=== PATIENT | female | born 1990 | race Caucasian/White ===

== ENCOUNTER 2019-06-11 19:07 | Emergency (ER) | payer MEDICAID ==
[~2019-06-11] VITALS: Ht 172.7 cm; Wt 127.0 kg
[2019-06-11 19:08] VITALS: BP 185/117
[2019-06-11] MEDS ORDERED: PENI500T2 PO (19:24)
== END 2019-06-11 19:42 | disposition home or self-care (01) ==
LOC: ER 19:08
DX: K02.9 Dental caries, unspecified (principal); I10 Essential (primary) hypertension
CPT/HCPCS: 99283

== ENCOUNTER 2021-01-11 10:25 | Emergency (ER) | payer MEDICAID ==
[~2021-01-11] VITALS: Ht 170.2 cm; Wt 127.3 kg
[2021-01-11] MEDS ORDERED: AZIT250T83 PO (11:28)
[2021-01-11] MEDS ORDERED: TETanus/Pertussis (Acell)/Diphther VAC/PF (Tdap-Adult) 0.5ml syringe IMVAC ONE (11:30)
[2021-01-11] MEDS ORDERED: cloNIDine 0.1 mg tablet PO ONE (11:35)
[2021-01-11 12:27] VITALS: BP 188/122
== END 2021-01-11 12:30 | disposition home or self-care (01) ==
LOC: ER 10:26
DX: S05.31XA Ocular laceration without prolapse or loss of intraocular tissue, right eye, initial encounter (principal); I10 Essential (primary) hypertension; Z20.3 Contact with and (suspected) exposure to rabies; Z72.89 Other problems related to lifestyle; Z79.2 Long term (current) use of antibiotics; W55.03XA Scratched by cat, initial encounter; Y93.89 Activity, other specified; Y92.89 Other specified places as the place of occurrence of the external cause; Y99.8 Other external cause status
CPT/HCPCS: 90471; 90715; 99283